=== PATIENT | female | born 1960 | race Caucasian/White ===

== ENCOUNTER 2019-08-27 13:57 | Emergency (ER) | payer OTHER ==
[~2019-08-27] VITALS: Ht 160 cm; Wt 50.0 kg
[2019-08-27] MEDS ORDERED: bacitracin 15gm ointment TP ONE (15:30)
[2019-08-27] MEDS ORDERED: SULF1TAB49 PO (15:32)
[2019-08-27 16:16] VITALS: BP 174/88
== END 2019-08-27 16:22 | disposition home or self-care (01) ==
LOC: ER 13:57
DX: L02.413 Cutaneous abscess of right upper limb (principal)
CPT/HCPCS: 10060; 99283

== ENCOUNTER 2020-06-27 12:15 | Emergency (ER) | payer MEDICAID ==
[~2020-06-27] VITALS: Ht 160 cm; Wt 41.6 kg
--- NOTE | 2020-06-27 13:41 | NUR ---
Pt transported to CT via wheelchair with tech.
[2020-06-27 14:07] LABS: BASOPHILS # (AUTO) 0.1 X10'3 (0-0.2); BASOPHILS % (AUTO) 1.2 % (0-1); EOSINOPHILS # (AUTO) 0.4 X10'3 (0-0.9); EOSINOPHILS % (AUTO) 3.6 % (0-6); HEMOGLOBIN 15.2 g/dl (12.0-16.0); LYMPHOCYTES # (AUTO) 2.5 X10'3 (1.1-4.8); LYMPHOCYTES % (AUTO) 22.1 % (21-51); MEAN CORPUSCULAR HEMOGLOBIN 29.1 PG (27.0-31.0); MEAN CORPUSCULAR VOLUME 88.1 FL (78-98); MEAN PLATELET VOLUME 8.9 FL (7.4-10.4); MONOCYTES # (AUTO) 0.6 X10'3 (0-0.9); MONOCYTES % (AUTO) 5.7 % (2-12); NEUTROPHILS # (AUTO) 7.7 X10'3 (1.8-7.7); NEUTROPHILS % (AUTO) 67.4 % (42-75); PLATELET COUNT 246 X10'3 (140-440); RED BLOOD COUNT 5.22 X10'6 (4.20-5.60); RED CELL DISTRIBUTION WIDTH 14.2 % (11.5-14.5); WHITE BLOOD COUNT 11.4 X10'3 (4.5-11.0)
[2020-06-27 14:14] LABS: PARTIAL THROMBOPLASTIN TIME 27 SECONDS (22-32)
[2020-06-27 14:19] LABS: ALANINE AMINOTRANSFERASE 14 U/L (12-78); ALBUMIN 3.2 G/DL (3.4-5.0); ALBUMIN/GLOBULIN RATIO 0.9 (1.1-1.5); ALKALINE PHOSPHATASE 67 IU/L (46-116); ANION GAP 6 (8-16); ASPARTATE AMINO TRANSFERASE 12 U/L (10-37); BILIRUBIN,TOTAL 0.2 MG/DL (0.1-1.0); BLOOD UREA NITROGEN 16 MG/DL (7-18); BUN/CREATININE RATIO 21.9 (6.6-38.0); CALCIUM 9.1 MG/DL (8.5-10.1); CHLORIDE 104 MMOL/L (99-107); CREATININE 0.73 MG/DL (0.40-0.90); GLUCOSE 200 MG/DL (70-104); POTASSIUM 3.9 MMOL/L (3.5-5.1); SODIUM 140 MMOL/L (135-145); TOTAL PROTEIN 6.9 G/DL (6.4-8.2); eGFR 81 ML/MIN
[2020-06-27 14:40] LABS: CLARITY,URINE CLOUDY (Clear); COLOR,URINE YELLOW (Yellow); GLUCOSE, URINE 250 mg/dl (Neg); KETONES,URINE NEGATIVE (Neg); LEUKOCYTE ESTERASE ,URINE TRACE (Neg); NITRITES, URINE POSITIVE (Neg); OCCULT BLOOD,URINE LARGE (Neg); PROTEIN,URINE >=300 mg/dl (Neg); UROBILINOGEN,URINE 0.2 E.U/dL (0.2-1.0)
[2020-06-27 14:41] LABS: UA COLLECTION TYPE CLN CATCH MIDSTREAM
[2020-06-27 14:47] LABS: BACTERIA,URINE 4+ /HPF (Neg); RBC,URINE 50-100 /HPF (0-2); SQUAMOUS EPITHELIAL CELL,UR FEW /LPF (FEW); WBC,URINE TNTC /HPF (0-4)
[2020-06-27 14:48] LABS: MUCUS STRANDS NONE SEEN /LPF (Neg); WBC CLUMPS,URINE MODERATE /HPF (NEGATIVE)
--- NOTE | 2020-06-27 14:55 | NUR ---
JARED Johnson aware of pt's blood pressure.
[2020-06-27] MEDS ORDERED: hydrALAZINE 20mg/ml inj. IV ONE (15:40)
[2020-06-27] MEDS ORDERED: acetaminophen 325mg tablet PO ONE (16:50)
[2020-06-27] MEDS ORDERED: CEPH250T PO (17:22)
[2020-06-27] MEDS ORDERED: LISI1TAB32 PO (17:26)
[2020-06-27 17:42] VITALS: BP 161/80
== END 2020-06-27 17:43 | disposition left against medical advice (07) ==
LOC: ER 12:16
DX: N39.0 Urinary tract infection, site not specified (principal); I16.0 Hypertensive urgency; R31.29 Other microscopic hematuria; R51.9 Headache, unspecified; H53.8 Other visual disturbances; F17.200 Nicotine dependence, unspecified, uncomplicated; Z79.2 Long term (current) use of antibiotics; Z79.899 Other long term (current) drug therapy
CPT/HCPCS: 36415; 70450; 71045; 80053; 81001; 84484; 85025; 85610; 85730; 87077; 87088; 87186; 93005; 96374; 99285; J0360

== ENCOUNTER 2020-06-30 11:03 | Emergency (ER) | payer MEDICAID ==
[~2020-06-30] VITALS: Ht 160 cm; Wt 40.0 kg
[~2020-06-30 11:03] MED LIST: CEPH250T PO; LISI1TAB32 PO
[2020-06-30 11:55] LABS: BASOPHILS # (AUTO) 0.1 X10'3 (0-0.2); BASOPHILS % (AUTO) 1.1 % (0-1); EOSINOPHILS # (AUTO) 0.3 X10'3 (0-0.9); EOSINOPHILS % (AUTO) 2.8 % (0-6); HEMATOCRIT 46.9 % (35.0-45.0); HEMOGLOBIN 15.8 g/dl (12.0-16.0); LYMPHOCYTES # (AUTO) 2.3 X10'3 (1.1-4.8); LYMPHOCYTES % (AUTO) 19.9 % (21-51); MEAN CORPUSCULAR HEMOGLOBIN 29.5 PG (27.0-31.0); MEAN CORPUSCULAR HGB CONC 33.6 g/dL (33.0-36.5); MEAN CORPUSCULAR VOLUME 87.6 FL (78-98); MEAN PLATELET VOLUME 8.6 FL (7.4-10.4); MONOCYTES # (AUTO) 0.6 X10'3 (0-0.9); MONOCYTES % (AUTO) 5.7 % (2-12); NEUTROPHILS % (AUTO) 70.5 % (42-75); PLATELET COUNT 285 X10'3 (140-440); RED BLOOD COUNT 5.35 X10'6 (4.20-5.60); RED CELL DISTRIBUTION WIDTH 14.2 % (11.5-14.5); WHITE BLOOD COUNT 11.4 X10'3 (4.5-11.0)
[2020-06-30 12:12] LABS: ALANINE AMINOTRANSFERASE 17 U/L (12-78); ALBUMIN 3.4 G/DL (3.4-5.0); ALBUMIN/GLOBULIN RATIO 0.9 (1.1-1.5); ALKALINE PHOSPHATASE 69 IU/L (46-116); ANION GAP 7 (8-16); ASPARTATE AMINO TRANSFERASE 10 U/L (10-37); BILIRUBIN,TOTAL 0.4 MG/DL (0.1-1.0); BLOOD UREA NITROGEN 17 MG/DL (7-18); BUN/CREATININE RATIO 21.8 (6.6-38.0); CALCIUM 9.1 MG/DL (8.5-10.1); CHLORIDE 100 MMOL/L (99-107); CREATININE 0.78 MG/DL (0.40-0.90); GLUCOSE 222 MG/DL (70-104); MAGNESIUM 1.7 MG/DL (1.5-2.4); POTASSIUM 3.5 MMOL/L (3.5-5.1); SODIUM 135 MMOL/L (135-145); TOTAL CARBON DIOXIDE 27.7 MMOL/L (24-32); TOTAL PROTEIN 7.2 G/DL (6.4-8.2); eGFR 75 ML/MIN
[2020-06-30] MEDS ORDERED: CefTRIAXone 2gm/D5W 50ml BAG 50 ML IV ONE (14:20)
[2020-06-30] MEDS ORDERED: SUMAtriptan succ. 6 MG/0.5ml vial SQ ONE (14:20)
[2020-06-30] MEDS ORDERED: normal saline 1000ML IV soln IVB ONE (14:20)
[2020-06-30] MEDS ORDERED: dexamethasone sod phosphate 10mg/ml inj IV STA (14:20)
[2020-06-30] MEDS ORDERED: ketorolac tromethamine 15mg/ml inj. IV ONE (14:20)
[2020-06-30] MEDS ORDERED: proCHLORperazine 10 MG/2 ml inj IV ONE (14:20)
[2020-06-30] MEDS ORDERED: hydrALAZINE 20mg/ml inj. IV ONE (16:40)
[2020-06-30] MEDS ORDERED: CEPH250T PO (16:43)
[2020-06-30] MEDS ORDERED: LISI1TAB32 PO (16:43)
--- NOTE | 2020-06-30 17:09 | NUR ---
PT REQUESTING TO LEEAVE THE ER, DR MALCOLM NOTIFIED.
[2020-06-30 17:54] VITALS: BP 178/94
== END 2020-06-30 17:56 | disposition home or self-care (01) ==
LOC: ER 11:03
DX: I10 Essential (primary) hypertension (principal); N39.0 Urinary tract infection, site not specified; R51.9 Headache, unspecified; Z79.899 Other long term (current) drug therapy
CPT/HCPCS: 36415; 80053; 83735; 85025; 93005; 96365; 96372; 96375; 99285; J0360; J0696; J0780; J1100; J1885; J7030; J3030

== ENCOUNTER 2020-07-10 08:50 | Emergency (ER) | payer MEDICAID ==
[~2020-07-10] VITALS: Ht 160 cm; Wt 40.7 kg
[2020-07-10] MEDS ORDERED: ketorolac trometh. 30mg/ml inj. IV ONE (09:30)
[2020-07-10] MEDS ORDERED: normal saline 1000ml 1,000 ML IV ONE (09:30)
[2020-07-10 10:34] LABS: BASOPHILS # (AUTO) 0.1 X10'3 (0-0.2); BASOPHILS % (AUTO) 0.8 % (0-1); EOSINOPHILS # (AUTO) 0.2 X10'3 (0-0.9); EOSINOPHILS % (AUTO) 1.5 % (0-6); HEMATOCRIT 44.7 % (35.0-45.0); HEMOGLOBIN 14.8 g/dl (12.0-16.0); LYMPHOCYTES # (AUTO) 1.7 X10'3 (1.1-4.8); LYMPHOCYTES % (AUTO) 14.8 % (21-51); MEAN CORPUSCULAR HEMOGLOBIN 29.5 PG (27.0-31.0); MEAN CORPUSCULAR HGB CONC 33.1 g/dL (33.0-36.5); MEAN CORPUSCULAR VOLUME 89.1 FL (78-98); MEAN PLATELET VOLUME 8.7 FL (7.4-10.4); MONOCYTES # (AUTO) 0.5 X10'3 (0-0.9); MONOCYTES % (AUTO) 4.8 % (2-12); NEUTROPHILS # (AUTO) 8.7 X10'3 (1.8-7.7); NEUTROPHILS % (AUTO) 78.1 % (42-75); PLATELET COUNT 245 X10'3 (140-440); RED BLOOD COUNT 5.02 X10'6 (4.20-5.60); RED CELL DISTRIBUTION WIDTH 15.1 % (11.5-14.5); WHITE BLOOD COUNT 11.1 X10'3 (4.5-11.0)
[2020-07-10 10:43] LABS: ALANINE AMINOTRANSFERASE 19 U/L (12-78); ALBUMIN 3.2 G/DL (3.4-5.0); ALBUMIN/GLOBULIN RATIO 0.9 (1.1-1.5); ALKALINE PHOSPHATASE 60 IU/L (46-116); ANION GAP 7 (8-16); ASPARTATE AMINO TRANSFERASE 12 U/L (10-37); BILIRUBIN,TOTAL 0.3 MG/DL (0.1-1.0); BLOOD UREA NITROGEN 20 MG/DL (7-18); BUN/CREATININE RATIO 29.9 (6.6-38.0); CALCIUM 8.6 MG/DL (8.5-10.1); CHLORIDE 105 MMOL/L (99-107); CREATININE 0.67 MG/DL (0.40-0.90); GLUCOSE 256 MG/DL (70-104); POTASSIUM 4.3 MMOL/L (3.5-5.1); SODIUM 138 MMOL/L (135-145); TOTAL CARBON DIOXIDE 25.6 MMOL/L (24-32); TOTAL PROTEIN 6.8 G/DL (6.4-8.2); eGFR 89 ML/MIN
[2020-07-10] MEDS ORDERED: iohexol 350MG/ML 100ml bottle IV ONE (10:52)
[2020-07-10 12:00] VITALS: BP 154/70
[2020-07-10] MEDS ORDERED: acetaminophen 325mg tablet PO ONE (12:20)
[2020-07-10 13:25] LABS: CLARITY,URINE CLEAR (Clear); COLOR,URINE STRAW (Yellow); GLUCOSE, URINE 250 mg/dl (Neg); KETONES,URINE NEGATIVE (Neg); LEUKOCYTE ESTERASE ,URINE NEGATIVE (Neg); NITRITES, URINE NEGATIVE (Neg); OCCULT BLOOD,URINE TRACE-INTACT (Neg); PH,URINE 5.5 (4.8-8.0); PROTEIN,URINE >=300 mg/dl (Neg); UROBILINOGEN,URINE 0.2 E.U/dL (0.2-1.0)
[2020-07-10 13:26] LABS: UA COLLECTION TYPE CLN CATCH MIDSTREAM
[2020-07-10 13:31] LABS: BACTERIA,URINE FEW /HPF (Neg); MUCUS STRANDS NONE SEEN /LPF (Neg); RBC,URINE 0-2 /HPF (0-2); SQUAMOUS EPITHELIAL CELL,UR FEW /LPF (FEW); WBC,URINE 0-4 /HPF (0-4)
[2020-07-10] MEDS ORDERED: aspirin 325mg tablet PO ONE (14:15)
== END 2020-07-10 14:30 | disposition left against medical advice (07) ==
LOC: ER 08:52
DX: K13.79 Other lesions of oral mucosa (principal); H57.11 Ocular pain, right eye; R51.9 Headache, unspecified; Z79.2 Long term (current) use of antibiotics; Z79.899 Other long term (current) drug therapy
CPT/HCPCS: 36415; 70488; 70496; 70498; 80053; 81001; 83605; 84443; 85025; 85651; 93005; 96361; 96374; 99285; J1885; J7030; Q9967

== ENCOUNTER 2020-09-20 10:55 | Emergency (ER) | payer MEDICAID ==
[~2020-09-20] VITALS: Ht 160 cm; Wt 40.0 kg
[2020-09-20] MEDS ORDERED: SULF1TAB49 PO (11:13)
[2020-09-20 11:19] VITALS: BP 141/79
== END 2020-09-20 11:32 | disposition home or self-care (01) ==
LOC: ER 10:55
DX: H60.11 Cellulitis of right external ear (principal); Z79.2 Long term (current) use of antibiotics; Z79.899 Other long term (current) drug therapy
CPT/HCPCS: 99283

== ENCOUNTER 2021-01-30 01:26 | Emergency (ER) | payer MEDICAID ==
[~2021-01-30] VITALS: Ht 160 cm; Wt 44.5 kg
[2021-01-30 01:36] VITALS: BP 225/107
== END 2021-01-30 06:08 | disposition left against medical advice (07) ==
LOC: ER 01:27
DX: M25.569 Pain in unspecified knee (principal); Z53.21 Procedure and treatment not carried out due to patient leaving prior to being seen by health care provider

== ENCOUNTER 2021-02-01 22:41 | Emergency (ER) | payer MEDICAID ==
[~2021-02-01] VITALS: Ht 160 cm; Wt 45.2 kg
[2021-02-01] MEDS ORDERED: acetaminophen 325mg tablet PO ONE (23:55)
[2021-02-02 00:40] VITALS: BP 186/98
--- NOTE | 2021-02-02 00:40 | NUR ---
us at bedside now ding vascular us of left leg
== END 2021-02-02 01:36 | disposition home or self-care (01) ==
LOC: ER 22:41
DX: M79.89 Other specified soft tissue disorders (principal); M79.662 Pain in left lower leg; Z79.2 Long term (current) use of antibiotics; Z79.899 Other long term (current) drug therapy
CPT/HCPCS: 93971; 99284

== ENCOUNTER 2021-03-20 15:44 | Emergency (ER) | payer MEDICAID ==
--- NOTE | 2021-03-20 16:20 | NUR ---
PER ER REG PT AND HER CLIENT DID NOT WANT TO WAIT ANY LONGER. STATED THEY WAITED LONG ENOUGH
== END 2021-03-20 16:33 | disposition left against medical advice (07) ==
LOC: ER 15:44
DX: M79.605 Pain in left leg (principal); Z53.21 Procedure and treatment not carried out due to patient leaving prior to being seen by health care provider

== ENCOUNTER 2021-04-16 15:28 | Emergency (ER) | payer MEDICAID ==
[~2021-04-16] VITALS: Ht 160 cm; Wt 46.4 kg
[2021-04-16 15:34] VITALS: BP 172/82
== END 2021-04-16 18:15 | disposition home or self-care (01) ==
LOC: ER 15:29
DX: I87.2 Venous insufficiency (chronic) (peripheral) (principal); G62.9 Polyneuropathy, unspecified
CPT/HCPCS: 99281

== ENCOUNTER 2021-08-13 13:31 | Emergency (ER) | payer MEDICAID ==
[~2021-08-13] VITALS: Ht 160 cm; Wt 46.9 kg
[~2021-08-13 13:31] MED LIST changes: -LISI1TAB32 PO; +LISI1TAB49 PO
[2021-08-13 13:41] VITALS: BP 158/79
[2021-08-13] MEDS ORDERED: ACET-1025 PO (14:02)
== END 2021-08-13 14:09 | disposition home or self-care (01) ==
LOC: ER 13:32
DX: H92.01 Otalgia, right ear (principal); Z59.00 Homelessness unspecified; Z79.2 Long term (current) use of antibiotics; Z79.899 Other long term (current) drug therapy
CPT/HCPCS: 99282